=== PATIENT | male | born 1985 | race Two or more races ===

== ENCOUNTER → 2024-10-29 | Outpatient (BNVA) | payer MEDICAID, SELFPAY | END | disposition home or self-care (01) | PROVIDERS: PCP Physician Assistant; Referring Provider Physician Assistant; Visit Provider Urology | DX: Z30.2 Encounter for sterilization (principal); N40.0 Benign prostatic hyperplasia without lower urinary tract symptoms; Z87.440 Personal history of urinary (tract) infections; E11.9 Type 2 diabetes mellitus without complications; E66.9 Obesity, unspecified; Z68.29 Body mass index [BMI] 29.0-29.9, adult | CPT/HCPCS: 81003; 99212; G0463 ==

== ENCOUNTER 2025-01-01 06:30 | Day surgery (SDC) | payer MEDICAID, SELFPAY ==
--- NOTE | 2024-12-31 06:00 | EKG_ITS ---
[facility] Test Date: 2024-12-31 Pat Name: AIDA BLANCA Department: Room: - Gender: Male Equal Opportunity Officer: RTSJC : 1985 Requested By: Aureliano Ball Order Number: [id number] Reading MD: Aureliano Ball Measurements Intervals [place] Rate: 83 P: 57 NM: 163 QRS: 61 QRSD: 93 T: 28 QT: 357 QTc: 420 Interpretive Statements SINUS RHYTHM No previous ECG available for comparison /store/S0/[id number]
[2024-12-31 08:08] VITALS: BMI 27.1
[2024-12-31 09:31] LABS: Alanine Aminotransferase 33 U/L (10-49); Albumin, Serum 4.5 gm/dL (3.5-5.0); Albumin/Globulin Ratio 1.6 (1.2-2.2); Alkaline Phosphatase 83 U/L (46-116); Anion Gap 9 (7-16); Aspartate Amino Transferase 24 U/L (0-34); BUN/Creatinine Ratio 20 Ratio (12-20); Bilirubin,Total 0.7 mg/dL (0.3-1.2); Blood Urea Nitrogen 14 mg/dL (9-23); Calcium 9.8 mg/dL (8.3-10.6); Calcium (Corrected) 9.8 mg/dL (8.5-10.1); Carbon Dioxide 27.8 mMol/L (20.0-31.0); Chloride 106 mMol/L (98-107); Creatinine (Component) 0.7 mg/dL (0.6-1.3); Estimated Creatinine Clearance 158.6 mL/min (>60); Globulin 2.9 gm/dL (2.3-3.5); Glucose 174 mg/dL (74-106); Osmolality,Calculated 289 (275-295); Potassium 4.2 mMol/L (3.4-5.1); Sodium 143 mMol/L (136-145); Total Protein 7.4 gm/dL (5.7-8.2); eGFR > 60 See Note
[2025-01-01] VITALS (7 sets, daily range): BP systolic 99–152; BP diastolic 47–93; PULSE 87–100; RESP 16–20; TEMP 36.3–36.6; O2SAT 95–100; BMI 26.6
[2025-01-01] MEDS: RINGERS LACTATED 1000 ML 1,000 ML 20 ML IV (07:13)
--- NOTE | 2025-01-01 09:44 | SUR.PHASEI ---
received pt and report from RN Homar and LIBERTAD Mccoy. vss, oral airway in place, 02 delivered via oxymask 8L. dressing in place to scrotum, cdi and held in place with scrotum strap. IV to right wrist intact, no s/s of redness or infiltration. BS 206 monitoring patient continuously.
--- NOTE | 2025-01-01 09:44 | PD.SUROPNT ---
Date of Procedure 01/01/25 Pre Op Diagnosis Elective sterilization Post Op Diagnosis Same Procedure Bilateral vasectomy Findings Bilateral vas no pathology Procedure Description This is [id number] male came for bilateral vasectomy procedure and complications were discussed with patient in great detail informed consent was obtained patient understood very well there is no warranty for permanent sterilization. Procedure patient was brought to the operating room in a satisfactory condition after appropriate premedication was appropriately identified by surgeon and operating room staff site scope and indications of the procedure were reconfirmed with the patient and he was was put on the operating table in a supine position general anesthesia was given uneventfully parts were prepped and draped in a usual sterile fashion. Next the right vas deferens was palpated between 2 fingers and a thumb 2% lidocaine with quarter percent Marcaine was instilled appropriately vertical skin incision was made proper hemostasis was secured. Next the vas deferens was brought into the incision it was from its various fascial coverings between 2 silver clips centimeter of the vas deferens was excised. The lumen of the vas deferens was diathermized with coagulation diathermy distal end of the vas deferens was buried between various fascial layers. Skin was approximated with 3-0 chromic. Similar procedure was repeated on the opposite side. Next this sterile dressings were applied. Pressure bandage was given Patient having tolerated the procedure well and was sent to recovery room in a satisfactory condition to be discharged home with full postoperative instructions were verbally as well as in writing to be followed in urology office in12 weeks' time. Anesthesia GETA Pathology / specimen None Estimated Blood Loss 0.2 Condition Stable Disposition PACU Surgeon Jeimy Aguilar MD Surgical Staff Operation Date: 01/01/25 08:30 Case Staff CHUCKING LATHE OPERATOR: Darius García
--- NOTE | 2025-01-01 10:01 | SUR.PHASEI ---
Pt awake, pt spit out oral airway with min assist. vss stable. pt denies any pain. dressing remains cdi. monitoring patient continuously
--- NOTE | 2025-01-01 10:20 | SUR.PHASEII ---
pt awake, a&ox4. no distress noted. vss. dressing remains CDI. pt denies any pain. pt tolerating ice chips at this time. pt denies any nausea
--- NOTE | 2025-01-01 10:41 | SUR.PHASEII ---
pt awake A&ox4, vss, dressing remains cdi. pt denies any pain. dc intructions given to patient and his Faith. both stated verbal understanding. pt dressed himself without assit.
--- NOTE | 2025-01-01 10:45 | SUR.PHASEII ---
patient ready for dc at 1045. pt waiting for transportation.
== END 2025-01-01 11:26 | disposition home or self-care (01) ==
PROVIDERS: Anesthesiology; PCP Nurse Practitioner Family; Referring Provider Urology; Visit Provider Urology
PROC: (CPT 55250; principal; 2025-01-01 08:30)
DX: Z30.2 Encounter for sterilization (principal); Z01.810 Encounter for preprocedural cardiovascular examination
CPT/HCPCS: 55250; 36415; 80053; 93005; A4217; A4649; J1100; J1885; J2250; J2405; J2704; J3010; J3490; J7120; A9270; J0665

== ENCOUNTER → 2025-04-29 | Outpatient (BNVA) | payer MEDICAID, SELFPAY | END | disposition home or self-care (01) | PROVIDERS: PCP Physician Assistant; Referring Provider Physician Assistant; Visit Provider Urology | DX: N40.0 Benign prostatic hyperplasia without lower urinary tract symptoms (principal); Z98.52 Vasectomy status; E11.9 Type 2 diabetes mellitus without complications; E66.9 Obesity, unspecified; Z68.28 Body mass index [BMI] 28.0-28.9, adult; E78.00 Pure hypercholesterolemia, unspecified | CPT/HCPCS: 81003; 99212; G0463 ==